=== PATIENT | female | born 1955 | race African-American/Black ===

== ENCOUNTER 2020-10-16 11:40 | Inpatient (IN) | payer MEDICARE, MEDICAID ==
[~2020-10-16] VITALS: Ht 165.1 cm; Wt 99.8 kg
[2020-10-16 16:10] VITALS: BP 150/72
--- NOTE | 2020-10-16 17:00 | NUR ---
NURSE NOTES: Patient uncooperative, refused to state time las taken meds. Addendum: 10/16/20 at 1759 by Yani Marina RN estefani
--- NOTE | 2020-10-16 17:26 | NUR ---
CHARGE NURSE NOTE: Received patient as a direct admit. from office. Alert, orientedx4, using her own walker. Adm.diagnosis: Anemia, GI Bleeding. No pain or signs of discomfort. Pt feels weak. was called for adm.orders, was covering him and gave adm. orders. He will visit patient and put more orders.
[2020-10-16] MEDS ORDERED: LEVOTHYROXINE125 MCG ORAL (17:46)
[2020-10-16] MEDS ORDERED: HYZAAR 100-251 EACH ORAL (17:58)
[2020-10-16] MEDS ORDERED: METOPROLOL SUCC25 MG ORAL (17:58)
[2020-10-16] MEDS ORDERED: COMPAZINE10 M2 PO (17:58)
[2020-10-16] MEDS ORDERED: MELOXICAM15 MG PO (17:58)
[2020-10-16] MEDS ORDERED: PANTOPRAZOLE SO40 MG ORAL (17:58)
[2020-10-16] MEDS ORDERED: HYDROCODON-ACE1 EA13 ORAL (17:58)
[2020-10-16] MEDS ORDERED: ATORVASTATIN CA40 MG ORAL (17:58)
[2020-10-16] MEDS ORDERED: CYCLOBENZAPRINE10 MG ORAL (17:58)
[2020-10-16] MEDS ORDERED: ELIQUIS5 MG ORAL (17:58)
[2020-10-16 19:00] LABS: BASOPHILS % (AUTO) 0.5 % (0.0-2.0); EOSINOPHILS % (AUTO) 2.3 % (0.0-3.0); HEMATOCRIT 28.7 % (37.0-47.0); HEMOGLOBIN 8.6 G/DL (12.0-16.0); LYMPHOCYTES % (AUTO) 36.9 % (20.0-45.0); MEAN CORPUSCULAR VOLUME 91 FL (80-99); MONOCYTES % (AUTO) 7.5 % (1.0-10.0); NEUTROPHILS % (AUTO) 52.7 % (45.0-75.0); PLATELET COUNT 163 K/UL (150-450); RED BLOOD COUNT 3.15 M/UL (4.20-5.40); RED CELL DISTRIBUTION WIDTH 16.1 % (11.6-14.8); WHITE BLOOD COUNT 5.4 K/UL (4.8-10.8)
[2020-10-16 19:20] LABS: ALANINE AMINOTRANSFERASE 17 U/L (12-78); ALBUMIN 3.6 G/DL (3.4-5.0); ALKALINE PHOSPHATASE 75 U/L (46-116); ANION GAP 11 mmol/L (5-15); ASPARTATE AMINO TRANSFERASE 16 U/L (15-37); BILIRUBIN,TOTAL < 0.1 MG/DL (0.2-1.0); BLOOD UREA NITROGEN 25 mg/dL (7-18); CALCIUM 9.3 MG/DL (8.5-10.1); CARBON DIOXIDE 24 MMOL/L (21-32); CHLORIDE 106 MMOL/L (98-107); CREATININE 2.1 MG/DL (0.55-1.30); POTASSIUM 4.1 MMOL/L (3.5-5.1); SODIUM 141 MMOL/L (136-145)
--- NOTE | 2020-10-16 19:20 | General Progress Note ---
Subjective Allergies: Coded Allergies: PENICILLINS (Verified Allergy, Mild, Rash, 10/16/20) Objective Last 24 Hour Vital Signs Date Time Temp Pulse Resp B/P (MAP) Pulse Ox O2 Delivery O2 Flow Rate FiO2 10/16/20 16:38 Room Air 10/16/20 16:10 98.4 54 16 150/72 (98) 98 Laboratory Tests 10/16/20 18:45: White Blood Count 5.4, Red Blood Count 3.15L, Hemoglobin 8.6L, Hematocrit 28.7L, Mean Corpuscular Volume 91, Mean Corpuscular Hemoglobin 27.2, Mean Corpuscular Hemoglobin Concent 29.9L, Red Cell Distribution Width 16.1H, Platelet Count 163, Mean Platelet Volume 9.6, Neutrophils (%) (Auto) 52.7, Lymphocytes (%) (Auto) 36.9, Monocytes (%) (Auto) 7.5, Eosinophils (%) (Auto) 2.3, Basophils (%) (Auto) 0.5, Sodium Level [Pending], Potassium Level [Pending], Chloride Level [Pending], Carbon Dioxide Level [Pending], Blood Urea Nitrogen [Pending], Creatinine [Pending], Estimat Glomerular Filtration Rate [Pending], Glucose Level [Pending], Calcium Level [Pending], Iron Level [Pending], Unsaturated Iron Binding [Pending], Total Bilirubin [Pending], Aspartate Amino Transf (AST/SGOT) [Pending], Alanine Aminotransferase (ALT/SGPT) [Pending], Alkaline Phosphatase [Pending], Total Protein [Pending], Albumin [Pending], Globulin [Pending], Carcinoembryonic Antigen [Pending] Height (Feet): 5 Height (Inches): 7.00 Weight (Pounds): 220 Assessment/Plan Assessment/Plan: GI CONSULT Telehealth visit Full note to follow Assessment - Melena - Anemia - abdominal pain - N/V - CAD - HTN Recommendations - po diet OK - will order COVID test per GI lab protocol - EGD once COVID results available - PPI - Follow CBC Thank you MD Prashanth Haddad Payman MD Oct 16, 2020 19:20
[2020-10-16 19:29] LABS: % IRON SATURATION 7 % (15-50); IRON 20 ug/dL (50-175); TOTAL IRON BINDING CAPACITY 301 ug/dL (250-450)
--- NOTE | 2020-10-16 19:38 | NUR ---
NURSE HAND-OFF: Important Events on Shift:[direct admit] Patient Status: [stable] Diet: [SHABBIR] Pending Orders: [] Pending Results/Labs:[] Pending MD notification:[] Latest Vital Signs: Temperature 98.4 , Pulse 54 , B/P 150 /72 , Respiratory Rate 16 , O2 SAT 98 , , O2 Flow Rate . Vital Sign Comment: [] Latest Huizar Fall Score: 45 Fall Risk: High Risk Safety Measures: Call light Within Reach, Bed Alarm Zone 1, Side Rails Side Rails x2, Bed position Low and Locked. Fall Precautions: Yellow Socks Patient Fall Education Report given to [Maria A RN].
--- NOTE | 2020-10-16 19:39 | NUR ---
NURSE NOTES: Received patient in no apparent distress. A&OX4. IV site patent and intact. Remind patient NPO and collect stool sample, patient fully understood. Patient's walker at bedside. Bed in lowest position. Call light within reach. Will continue to monitor.
--- NOTE | 2020-10-16 19:49 | NUR ---
NURSE NOTES: Dr. Alford requested to do rapid COVID test. Lab says that they don't do rapid test anymore. Notified Dr. Alford. Dr. Alford says that he will postpone EGD schedule until get Covid test result.
[2020-10-16 20:00] VITALS: BP 139/50
[2020-10-16] MEDS: Pantoprazole Inj IVP SCH (21:19)
[2020-10-16] MEDS: Potassium Chloride 10 MEQ in D5 1/2NS 1,000 ML IV SCH (21:20)
[2020-10-17] VITALS: BP 136/52
[2020-10-17 04:00] VITALS: BP 153/57
[2020-10-17] MEDS: Levothyroxine 125mcg tab ORAL SCH (06:15)
[2020-10-17 06:58] LABS: HEMATOCRIT 24.5 % (37.0-47.0); HEMOGLOBIN 7.5 G/DL (12.0-16.0); MEAN CORPUSCULAR VOLUME 89 FL (80-99); PLATELET COUNT 148 K/UL (150-450); RED BLOOD COUNT 2.76 M/UL (4.20-5.40); RED CELL DISTRIBUTION WIDTH 15.2 % (11.6-14.8); WHITE BLOOD COUNT 4.3 K/UL (4.8-10.8)
[2020-10-17 07:07] LABS: NEUTROPHILS % (AUTO) 45.3 % (45.0-75.0)
[2020-10-17 07:08] LABS: LYMPHOCYTES % (AUTO) 42.3 % (20.0-45.0); MONOCYTES % (AUTO) 10.1 % (1.0-10.0)
--- NOTE | 2020-10-17 07:41 | NUR ---
NURSE HAND-OFF: Important Events on Shift: NPO, Need collect stool Patient Status: Diet: NPO Pending Orders: Pending Results/Labs: Pending MD notification: Latest Vital Signs: Temperature 98.3 , Pulse 57 , B/P 153 /57 , Respiratory Rate 16 , O2 SAT 97 , , O2 Flow Rate . Vital Sign Comment: Latest Huizar Fall Score: 45 Fall Risk: High Risk Safety Measures: Call light Within Reach, Bed Alarm Zone 1, Side Rails Side Rails x2, Bed position Low and Locked. Fall Precautions: Yellow Socks Patient Fall Education Report given to Klarissa Adrian RN.
--- NOTE | 2020-10-17 07:42 | NUR ---
NURSE NOTES: Received report from SANDRO Waldrop. Rounding done. Pt a/o x 4, in bed. No SOB noted with room air. Denies any pain at this time. D51/2NS + KCl 10 meq is running @75ml/hr via Rt hand IV access. Pt is on NPO. Bed in lowest position, call light within reach. Will continue to monitor.
[2020-10-17 08:00] VITALS: BP 169/70
[2020-10-17] MEDS: Pantoprazole Inj IVP SCH ×2 (08:11→20:28)
[2020-10-17] MEDS: Losartan 50mg tab ORAL SCH (08:11)
[2020-10-17] MEDS: Metoprolol Succinate XL 25mg tab ORAL SCH (08:12)
--- NOTE | 2020-10-17 08:49 | NUR ---
CASE MANAGEMENT:REVIEW DIRECT ADMIT FROM HOME SI: ABDOMINAL PAIN. MELENA 98.4 54 16 150/72 98% ON RA H/H-8.6/28.7 BUN+25 CR+2.1 IS: IV VENOFER QHS IVF+KCL@75/HR IV PROTONIX Q12 SYNTHROID PO QD TOPROL XL PO QD COZAAR PO QD LIPITOR PO QHS : ADMITTED TO MED/SURG PLAN: NOVEL COVID SWAB EGD ONCE COVID RESULTS ARE AVAILABLE
--- NOTE | 2020-10-17 10:38 | General Progress Note ---
Subjective Allergies: Coded Allergies: PENICILLINS (Verified Allergy, Mild, Rash, 10/16/20) Subjective Feels OK no events overnight H&H lower today COVID results pending Objective Last 24 Hour Vital Signs Date Time Temp Pulse Resp B/P (MAP) Pulse Ox O2 Delivery O2 Flow Rate FiO2 10/17/20 09:00 Room Air 10/17/20 08:12 53 169/70 10/17/20 08:11 169/70 10/17/20 08:00 97.7 53 19 169/70 (103) 97 10/17/20 04:00 98.3 57 16 153/57 (89) 97 10/17/20 00:00 97.6 57 16 136/52 (80) 99 10/16/20 21:00 Room Air 10/16/20 20:00 97.5 59 16 139/50 (79) 99 10/16/20 16:38 Room Air 10/16/20 16:10 98.4 54 16 150/72 (98) 98 Intake and Output 10/16/20 10/17/20 19:00 07:00 Intake Total 500 ml 675 ml Balance 500 ml 675 ml Intake Oral 500 ml IV Total 675 ml # Voids 1 2 Laboratory Tests 10/16/20 18:45: White Blood Count 5.4, Red Blood Count 3.15L, Hemoglobin 8.6L, Hematocrit 28.7L, Mean Corpuscular Volume 91, Mean Corpuscular Hemoglobin 27.2, Mean Corpuscular Hemoglobin Concent 29.9L, Red Cell Distribution Width 16.1H, Platelet Count 163, Mean Platelet Volume 9.6, Neutrophils (%) (Auto) 52.7, Lymphocytes (%) (Auto) 36.9, Monocytes (%) (Auto) 7.5, Eosinophils (%) (Auto) 2.3, Basophils (%) (Auto) 0.5, Sodium Level 141, Potassium Level 4.1, Chloride Level 106, Carbon Dioxide Level 24, Anion Gap 11, Blood Urea Nitrogen 25H, Creatinine 2.1H, Estimat Glomerular Filtration Rate 28.5, Glucose Level 92, Calcium Level 9.3, Iron Level 20L, Total Iron Binding Capacity 301, Percent Iron Saturation 7L, Unsaturated Iron Binding 281, Total Bilirubin < 0.1L, Aspartate Amino Transf (AST/SGOT) 16, Alanine Aminotransferase (ALT/SGPT) 17, Alkaline Phosphatase 75, Total Protein 7.1, Albumin 3.6, Globulin 3.5, Albumin/Globulin Ratio 1.0, Carcinoembryonic Antigen [Pending] 10/17/20 05:45: White Blood Count 4.3L, Red Blood Count 2.76L, Hemoglobin 7.5L, Hematocrit 24.5L , Mean Corpuscular Volume 89, Mean Corpuscular Hemoglobin 27.3, Mean Corpuscular Hemoglobin Concent 30.8L, Red Cell Distribution Width 15.2H, Platelet Count 148L, Mean Platelet Volume 9.5, Neutrophils (%) (Auto) 45.3, Lymphocytes (%) (Auto) 42.3, Monocytes (%) (Auto) 10.1H, Eosinophils (%) (Auto) 1.0, Basophils (%) (Auto) 0.0, Prothrombin Time 11.4, Prothromb Time International Ratio 1.0 Height (Feet): 5 Height (Inches): 7.00 Weight (Pounds): 220 Objective NCAT Supple CTA RRR abd soft ND NT no edema Neuro Nonfocal Assessment/Plan Assessment/Plan: Assessment - Melena - Anemia - abdominal pain - improved - N/V - resolved - CAD - HTN - Azotemia Recommendations - po diet - f/u COVID test - EGD pending - PPI - Follow CBC, BMP Darrius Alford MD Oct 17, 2020 10:37
[2020-10-17] MEDS: Potassium Chloride 10 MEQ in D5 1/2NS 1,000 ML IV SCH ×2 (10:56→22:32)
[2020-10-17 13:15] VITALS: BP 163/59
[2020-10-17] MEDS: HydrALAZINE 25mg tab ORAL PRN (13:16)
[2020-10-17] MEDS ORDERED: ZOFRAN ODT8 MG ORAL (15:38)
[2020-10-17] MEDS ORDERED: MEDROL DOSEPAK4 MG ORAL (15:38)
[2020-10-17] MEDS: HYDROcodone/Acetamin 5/325 tab ORAL PRN ×2 (15:43→21:50)
[2020-10-17 16:00] VITALS: BP 155/60
--- NOTE | 2020-10-17 16:10 | NUR ---
NURSE NOTES: Blood transfusion was started. Pt is in stable condition.
--- NOTE | 2020-10-17 19:00 | NUR ---
NURSE NOTES: Blood transfusion was done. Pt is in stable condition.
--- NOTE | 2020-10-17 19:20 | NUR ---
NURSE HAND-OFF: Important Events on Shift: PRBC 1 unit was given Patient Status: stable Diet: cardiac diet Pending Orders: EGD Pending Results/Labs:n/a Pending MD notification:n/a Latest Vital Signs: Temperature 97.9 , Pulse 60 , B/P 155 /60 , Respiratory Rate 18 , O2 SAT 100 , , O2 Flow Rate . Vital Sign Comment: stable Latest Huizar Fall Score: 45 Fall Risk: High Risk Safety Measures: Call light Within Reach, Bed Alarm Zone 1, Side Rails Side Rails x2, Bed position Low and Locked. Fall Precautions: Yellow Socks Patient Fall Education Report given to SANDRO Kirk.
--- NOTE | 2020-10-17 19:30 | NUR ---
NURSE NOTES: Patient in bed, awake and ANOx4. On room air with no signs of distress or SOB. IV intact and patent. Bed locked and in lowest position. Call light within reach. Will continue to monitor.
[2020-10-17 20:00] VITALS: BP 151/60
[2020-10-17] MEDS: Atorvastatin 20mg tab ORAL SCH (20:29)
[2020-10-17] MEDS: Iron Sucrose 100 MG in NS 55 ML IVPB SCH (21:42)
--- NOTE | 2020-10-17 23:49 | Cardiology Progress Note ---
Subjective DATE OF SERVICE: Oct 17, 2020 No signs of bleeding, but hemoglobin dropped to 7.5. Stool OB pending (no BM) Patient with episodic abdominal pain Objective Last 24 Hour Vital Signs Date Time Temp Pulse Resp B/P (MAP) Pulse Ox O2 Delivery O2 Flow Rate FiO2 10/17/20 21:00 Room Air 10/17/20 20:00 98.4 66 24 151/60 (90) 99 10/17/20 16:00 97.9 60 18 155/60 (91) 100 10/17/20 13:16 163/59 10/17/20 13:15 97.2 61 19 163/59 (93) 99 10/17/20 09:00 Room Air 10/17/20 08:12 53 169/70 10/17/20 08:11 169/70 10/17/20 08:00 97.7 53 19 169/70 (103) 97 10/17/20 04:00 98.3 57 16 153/57 (89) 97 10/17/20 00:00 97.6 57 16 136/52 (80) 99 HEENT: normal ENT inspection LUNGS: lungs clear bilaterally CARDIAC: normal rate, regular rhythm, normal S1 and S2, systolic murmur - 1/6 syst murmur at apex ABDOMEN: normal bowel sounds, non tender, soft, no organomegaly EXTREMITIES: normal range of motion, non-tender Laboratory Tests Test 10/17/20 05:45 White Blood Count 4.3 K/UL (4.8-10.8) L Red Blood Count 2.76 M/UL (4.20-5.40) L Hemoglobin 7.5 G/DL (12.0-16.0) L Hematocrit 24.5 % (37.0-47.0) L Mean Corpuscular Volume 89 FL (80-99) Mean Corpuscular Hemoglobin 27.3 PG (27.0-31.0) Mean Corpuscular Hemoglobin Concent 30.8 G/DL (32.0-36.0) L Red Cell Distribution Width 15.2 % (11.6-14.8) H Platelet Count 148 K/UL (150-450) L Mean Platelet Volume 9.5 FL (6.5-10.1) Neutrophils (%) (Auto) 45.3 % (45.0-75.0) Lymphocytes (%) (Auto) 42.3 % (20.0-45.0) Monocytes (%) (Auto) 10.1 % (1.0-10.0) H Eosinophils (%) (Auto) 1.0 % (0.0-3.0) Basophils (%) (Auto) 0.0 % (0.0-2.0) Prothrombin Time 11.4 SEC (9.30-11.50) Prothromb Time International Ratio 1.0 (0.9-1.1) Assessment/Plan Assessment/Plan GI Bleed Anemia Iron def Ischemic heart disease Hx CABG Hypertension/HHD CKD PRBC tx Titrate antiHTN regimen Off anticoagulation and antiplt rx For diagnostic EGD tomorrow Gordo Lal MD Oct 17, 2020 23:49
[2020-10-18] VITALS (12 sets, daily range): BP systolic 150–170; BP diastolic 55–91
[2020-10-18] MEDS: Levothyroxine 125mcg tab ORAL SCH (05:45)
[2020-10-18] MEDS: HydrALAZINE 25mg tab ORAL PRN ×2 (05:45→14:51)
[2020-10-18 06:14] LABS: BASOPHILS % (AUTO) 0.9 % (0.0-2.0); EOSINOPHILS % (AUTO) 2.1 % (0.0-3.0); HEMATOCRIT 25.3 % (37.0-47.0); HEMOGLOBIN 8.2 G/DL (12.0-16.0); LYMPHOCYTES % (AUTO) 38.6 % (20.0-45.0); MEAN CORPUSCULAR VOLUME 89 FL (80-99); MONOCYTES % (AUTO) 9.1 % (1.0-10.0); NEUTROPHILS % (AUTO) 49.4 % (45.0-75.0); PLATELET COUNT 144 K/UL (150-450); RED BLOOD COUNT 2.83 M/UL (4.20-5.40); RED CELL DISTRIBUTION WIDTH 15.7 % (11.6-14.8); WHITE BLOOD COUNT 4.7 K/UL (4.8-10.8)
--- NOTE | 2020-10-18 06:26 | NUR ---
NURSE HAND-OFF: Important Events on Shift: PCR swab neg for COVID-19 10/18 Patient Status: Stable Diet: NPO Pending Orders: OB stool Pending Results/Labs: BMP, CBC Pending MD notification:N/A Latest Vital Signs: Temperature 97.2 , Pulse 58 , B/P 160 /63 , Respiratory Rate 20 , O2 SAT 93 , , O2 Flow Rate . Vital Sign Comment: [] Latest Huizar Fall Score: 45 Fall Risk: High Risk Safety Measures: Call light Within Reach, Bed Alarm Zone 1, Side Rails Side Rails x2, Bed position Low and Locked. Fall Precautions: Yellow Socks Patient Fall Education
[2020-10-18 06:29] LABS: CREATININE 2.1 MG/DL (0.55-1.30); POTASSIUM 4.2 MMOL/L (3.5-5.1)
--- NOTE | 2020-10-18 07:23 | NUR ---
NURSE NOTES: Report received from Yelena JO, rounds made. Patient AOx4, calm. Respirations even/unlabored on RA. NPO for EGD today. Will medicate for pain, PRN. Stool OB still needed. IVF D5 1/2 NS +10 KCL at 75 ml/hr to right hand, site asymptomatic. Call light in reach, bed in lowest position, will continue to monitor.
--- NOTE | 2020-10-18 08:30 | NUR ---
NURSE NOTES: GI lab notified that patient ate 50 % of breakfast (NPO sign is present on patient room door), will follow up on time for EGD.
--- NOTE | 2020-10-18 09:09 | NUR ---
RD ASSESSMENT & RECOMMENDATIONS SEE CARE ACTIVITY FOR COMPLETE ASSESSMENT DAILY ESTIMATED NEEDS: Needs based on Cardiac, obese 69.8kg abw 20-25 kcals/kg 2019-3484 total kcals 1-1.2 g protein/kg 70-84 g total protein 25-30 mL/kg 2192-5692 total fluid mLs NUTRITION DIAGNOSIS: Altered GI function related to melena and anemia as evidenced by low Hgb (now 8.2 s/p PRBC), adm w/ abdominal pain, EGD pending. CURRENT DIET: Cardiac PO DIET RECOMMENDATIONS: Rec CARDIAC/ LOW FIBER diet ADDITIONAL RECOMMENDATIONS: 1) Obtain a standing weight or calibrated bed scale wt 2) Monitor renal status, lytes
[2020-10-18] MEDS: Losartan 50mg tab ORAL SCH (09:23)
[2020-10-18] MEDS: Pantoprazole Inj IVP SCH ×2 (09:24→21:37)
[2020-10-18] MEDS: Metoprolol Succinate XL 25mg tab ORAL SCH (09:24)
[2020-10-18] MEDS: HYDROcodone/Acetamin 5/325 tab ORAL PRN (09:25)
--- NOTE | 2020-10-18 12:35 | Pre-Procedure Note/Attestation ---
Pre-Procedure Note/Attestation Complete Prior to Procedure Planned Procedure: not applicable Procedure Narrative: gib Indications for Procedure Pre-Operative Diagnosis: egd Attestation I attest that I discussed the nature of the procedure; its benefits; risks and complications; and alternatives (and the risks and benefits of such alternatives), prior to the procedure, with the patient (or the patient's legal community health representative). I attest that, if there was a reasonable possibility of needing a blood transfusion, the patient (or the patient's legal community health representative) was given the [facility] standardized written summary, pursuant to the Waqar Lai Blood Safety Act ([place] Health and Safety Code # 1645, as amended). I attest that I re-evaluated the patient just prior to the surgery and that there has been no change in the patient's H&P, except as documented below: Lake Odom MD Oct 18, 2020 12:35
[2020-10-18] MEDS ORDERED: Ketorolac 30mg Inj IV PRN ×2 (12:45)
[2020-10-18] MEDS ORDERED: Labetalol 5mg/ml 20ml vial IV PRN (12:45)
[2020-10-18] MEDS ORDERED: DiphenhydrAMINE 50mg/ml Inj IVP PRN (12:45)
[2020-10-18] MEDS ORDERED: Atropine Sulfate 0.4mg/ml inj IVP PRN (12:45)
[2020-10-18] MEDS ORDERED: Midazolam 2mg/2ml Inj IVP PRN (12:45)
[2020-10-18] MEDS ORDERED: LORazepam Inj 2mg/ml 1ml IV PRN (12:45)
[2020-10-18] MEDS ORDERED: HYDROcodone/Acetamin 5/325 tab ORAL PRN (12:45)
[2020-10-18] MEDS ORDERED: Hydromorphone 0.5mg/0.5ml inj IVP PRN (12:45)
[2020-10-18] MEDS ORDERED: HYDROcodone/Acetamin 7.5/325 tab ORAL PRN (12:45)
[2020-10-18] MEDS ORDERED: fentaNYL 100 mcg/2 mL IV PRN (12:45)
[2020-10-18] MEDS ORDERED: Metoclopramide 10mg/2ml Inj IVP PRN (12:45)
[2020-10-18] MEDS ORDERED: oxyCODONE HCL/Acetaminophen 5/325mg ORAL PRN (12:45)
[2020-10-18] MEDS ORDERED: Meperidine 25mg/1ml Inj (FOR RIGORS ONLY) IV PRN (12:45)
[2020-10-18] MEDS ORDERED: LR 1000ml 1,000 ML IVLG SCH (12:45)
--- NOTE | 2020-10-18 12:47 | Anethesia Preoperative Eval ---
Anesthesia Pre-op PMH/ROS General Date of Evaluation: Oct 18, 2020 Time of Evaluation: 13:47 Anesthesiologist: Rose ASA Score: ASA 3 Mallampati Score Class I : Soft palate, uvula, fauces, pillars visible Class II: Soft palate, uvula, fauces visible Class III: Soft palate, base of uvula visible Class IV: Only hard plate visible Mallampati Classification: Class III Surgeon: Ilene Diagnosis: Abd Pain Surgical Procedure: EGD Anesthesia History: none Family History: no anesthesia problems Allergies: Coded Allergies: PENICILLINS (Verified Allergy, Mild, Rash, 10/16/20) Medications: see eMAR Patient NPO?: Yes Past Medical History Cardiovascular: Reports: HTN, CAD Endocrine: Reports: hypothyroidism Hematology/Immune: Reports: anemia Other: obesity - BMI 38 PSxH Narrative: CABG X 3 2014 Anesthesia Pre-op Phys. Exam Physician Exam Last Vital Signs Date Time Temp Pulse Resp B/P (MAP) Pulse Ox O2 Delivery O2 Flow Rate FiO2 10/18/20 09:24 61 154/77 10/18/20 04:00 97.2 20 93 10/17/20 21:00 Room Air Constitutional: NAD Neurologic: CN 2-12 intact Cardiovascular: RRR Respiratory: CTA Gastrointestinal: S/NT/ND Airway Exam Mallampati Score: Class III MO: limited ROM: limited Anesthesia Pre-op A/P Labs Hematology Test 10/18/20 06:00 White Blood Count 4.7 K/UL (4.8-10.8) L Red Blood Count 2.83 M/UL (4.20-5.40) L Hemoglobin 8.2 G/DL (12.0-16.0) L Hematocrit 25.3 % (37.0-47.0) L Mean Corpuscular Volume 89 FL (80-99) Mean Corpuscular Hemoglobin 28.9 PG (27.0-31.0) Mean Corpuscular Hemoglobin Concent 32.3 G/DL (32.0-36.0) Red Cell Distribution Width 15.7 % (11.6-14.8) H Platelet Count 144 K/UL (150-450) L Mean Platelet Volume 8.4 FL (6.5-10.1) Neutrophils (%) (Auto) 49.4 % (45.0-75.0) Lymphocytes (%) (Auto) 38.6 % (20.0-45.0) Monocytes (%) (Auto) 9.1 % (1.0-10.0) Eosinophils (%) (Auto) 2.1 % (0.0-3.0) Basophils (%) (Auto) 0.9 % (0.0-2.0) Chemistry Test 10/18/20 06:00 Sodium Level 142 MMOL/L (136-145) Potassium Level 4.2 MMOL/L (3.5-5.1) Chloride Level 111 MMOL/L (98-107) H Carbon Dioxide Level 24 MMOL/L (21-32) Anion Gap 7 mmol/L (5-15) Blood Urea Nitrogen 22 mg/dL (7-18) H Creatinine 2.1 MG/DL (0.55-1.30) H Estimat Glomerular Filtration Rate 28.5 mL/min (>60) Glucose Level 101 MG/DL (74-106) Calcium Level 9.0 MG/DL (8.5-10.1) Risk Assessment & Plan Assessment: ASA 3 Plan: TIVA Status Change Before Surgery: Lars Bowman MD Oct 18, 2020 12:47
--- NOTE | 2020-10-18 12:47 | Immediate Post-Op Evaluation ---
Immediate Post-Op Evalulation Immediate Post-Op Evalulation Procedure: EGD Date of Evaluation: Oct 18, 2020 Time of Evaluation: 14:20 IV Fluids: 200 NS Blood Products: 0 Estimated Blood Loss: 1 Urinary Output: 0 Blood Pressure Systolic: 158 Blood Pressure Diastolic: 83 Pulse Rate: 69 Respiratory Rate: 16 O2 Sat by Pulse Oximetry: 100 Temperature (Fahrenheit): 98.1 Pain Score (1-10): 2 Nausea: No Vomiting: No Complications 0 Patient Status: awake, reacts, patent, none Hydration Status: adequate Lars Rose MD Oct 18, 2020 12:47
--- NOTE | 2020-10-18 12:48 | 48 Hour Post Anesthesia Eval ---
Post Anesthesia Evaluation Procedure: EGD Date of Evaluation: Oct 18, 2020 Time of Evaluation: 16:34 Blood Pressure Systolic: 154 0: 74 Pulse Rate: 67 Respiratory Rate: 18 Temperature (Fahrenheit): 98.2 O2 Sat by Pulse Oximetry: 100 Airway: patent Nausea: No Vomiting: No Pain Intensity: 1 Hydration Status: adequate Cardiopulmonary Status: Stable Mental Status/LOC: patient returned to baseline Follow-up Care/Observations: 0 Post-Anesthesia Complications: 0 Follow-up care needed: N/A Lars Rose MD Oct 18, 2020 12:48
[2020-10-18] MEDS: Potassium Chloride 10 MEQ in D5 1/2NS 1,000 ML IV SCH ×2 (13:16→21:37)
[2020-10-18] MEDS ORDERED: NS 500ML IVPB ONE (13:40)
--- NOTE | 2020-10-18 13:40 | Endoscopy Procedure Note ---
Endoscopy Procedure Note General Indication for Procedure: gib Procedures Performed: EGD Operative Findings/Diagnosis: gastritis Specimen: yes Pt Tolerated Procedure Well: Yes Estimated Blood Loss: none Anesthesia Anesthesiologist: carrie Anesthesia: MAC Inserted Devices Implant(s) used?: No GI Core Measures 50 yrs or older w/o bx or poly: Not Applicable 10yrs. F/U recommended: Not Applicable Lake Odom MD Oct 18, 2020 13:40
[2020-10-18] MEDS ORDERED: Lidocaine 1% MPF 10mg/ml 5ml ONE (14:00)
[2020-10-18] MEDS ORDERED: LR 1000ml ONE (14:00)
--- NOTE | 2020-10-18 14:12 | NUR ---
CASE MANAGEMENT:REVIEW 10/18/20 SI: ABDOMINAL PAIN. MELENA S/P EGD(+) GASTRITIS 98.6 67 18 160/63 97% ON RA WBC-4.7 H/H-8.2/25.3 PLT-144 BUN+22 CR+2.1 IS: IVF+KCL@75/HR NORVASC PO QD IV VENOFER QHS LIPITOR PO QHS COZAAR PO QD TOPROL XL PO QD SYNTHROID PO QD : MED/SURG STATUS DCP: FROM HOME
--- NOTE | 2020-10-18 14:30 | NUR ---
NURSE NOTES: Patient sent to EGD via gurney at 1330 on RA in stable condition, returned at 1430. Findings: no gi bleed, gastritis.
--- NOTE | 2020-10-18 17:23 | General Progress Note ---
Subjective ROS Limited/Unobtainable: No Constitutional: Reports: no symptoms HEENT: Reports: no symptoms Cardiovascular: Reports: no symptoms Respiratory: Reports: no symptoms Gastrointestinal/Abdominal: Reports: no symptoms Genitourinary: Reports: no symptoms Neurologic/Psychiatric: Reports: no symptoms Endocrine: Reports: no symptoms Hematologic/Lymphatic: Reports: anemia Allergies: Coded Allergies: PENICILLINS (Verified Allergy, Mild, Rash, 10/16/20) All Systems: reviewed and negative except above Subjective no complaints. no bleeding. labs reviewed.. npo for endoscopy. on PPI. off ac/antiplt rx Objective Last 24 Hour Vital Signs Date Time Temp Pulse Resp B/P (MAP) Pulse Ox O2 Delivery O2 Flow Rate FiO2 10/18/20 14:51 170/78 10/18/20 14:50 98.5 84 16 170/78 (108) 96 10/18/20 14:25 97.9 90 19 163/91 100 Room Air 10/18/20 14:15 79 24 162/79 100 Simple Mask 6 10/18/20 14:05 65 16 161/81 100 Simple Mask 6 10/18/20 14:04 67 18 100 10/18/20 14:03 69 16 100 10/18/20 14:00 98.0 67 21 166/79 100 Simple Mask 6 10/18/20 12:00 98.6 57 21 160/63 (95) 97 10/18/20 09:24 61 154/77 10/18/20 09:24 61 154/77 10/18/20 09:23 154/77 10/18/20 09:00 Room Air 10/18/20 08:00 98.1 61 18 154/77 (102) 97 10/18/20 05:45 160/63 10/18/20 04:00 97.2 58 20 160/63 (95) 93 10/18/20 00:51 68 155/61 10/18/20 00:00 98.1 68 18 155/61 (92) 98 10/17/20 21:00 Room Air 10/17/20 20:00 98.4 66 24 151/60 (90) 99 Intake and Output 10/17/20 10/18/20 19:00 07:00 Intake Total 1590 ml Balance 1590 ml Intake Oral 840 ml IV Total 750 ml # Voids 3 Laboratory Tests 10/18/20 06:00: White Blood Count 4.7L, Red Blood Count 2.83L, Hemoglobin 8.2L, Hematocrit 25.3L , Mean Corpuscular Volume 89, Mean Corpuscular Hemoglobin 28.9, Mean Corpuscular Hemoglobin Concent 32.3, Red Cell Distribution Width 15.7H, Platelet Count 144L, Mean Platelet Volume 8.4, Neutrophils (%) (Auto) 49.4, Lymphocytes (%) (Auto) 38.6, Monocytes (%) (Auto) 9.1, Eosinophils (%) (Auto) 2.1, Basophils (%) (Auto) 0.9, Sodium Level 142, Potassium Level 4.2, Chloride Level 111H, Carbon Dioxide Level 24, Anion Gap 7, Blood Urea Nitrogen 22H, Creatinine 2.1H, Estimat Glomerular Filtration Rate 28.5, Glucose Level 101, Calcium Level 9.0 Height (Feet): 5 Height (Inches): 5.00 Weight (Pounds): 220 General Appearance: WD/WN, alert EENT: normal ENT inspection Neck: normal alignment, supple Cardiovascular: normal rate, regular rhythm Respiratory/Chest: chest wall non-tender, lungs clear, normal breath sounds, no respiratory distress Abdomen: normal bowel sounds, non tender, soft, no organomegaly, no mass Edema: no edema noted Arm (L), no edema noted Arm (R), no edema noted Leg (L), no edema noted Leg (R) 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
--- NOTE | 2020-10-18 19:13 | NUR ---
NURSE HAND-OFF: Important Events on Shift:EGD done today ([id number], no gi bleed/gastritis findings, elevated BP, medicated with Hydralazine x1, [place] x1 Patient Status: stable Diet: cardiac Pending Orders: none Pending Results/Labs: none Pending MD notification: none Latest Vital Signs: Temperature 98.8 , Pulse 69 , B/P 151 /55 , Respiratory Rate 18 , O2 SAT 96 , Room Air, O2 Flow Rate 6 . Vital Sign Comment: MONITOR BP Latest Huizar Fall Score: 60 Fall Risk: High Risk Safety Measures: Call light Within Reach, Bed Alarm Zone 1, Side Rails Side Rails x2, Bed position Low and Locked. Fall Precautions: Yellow Socks Door Sign Patient Fall Education Report given to Bee JO. Addendum: 10/18/20 at 2030 by Nadine Shine RN STOOL OB STILL NEEDED.
--- NOTE | 2020-10-18 20:00 | NUR ---
NURSE NOTES: RECEIVED PATIENT LYING IN BED, AWAKE, ALERT/ORIENTED X3, VERBALLY RESPONSIVE, DENIES PAIN. NO SIGNS AND SYMPTOMS OF ACUTE CARDIO RESPIRATORY DISTRESS/SHORTNESS OF BREATH, DENIES CHEST PAIN, NO PERIPHERAL EDEMA NOTED. IV INTACT TO RIGHT HAND GAUGE 22, TOLERATING IV FLUIDS, NO REDNESS/SWELLING NOTED TO SITE. ABDOMEN SOFT/NON DISTENDED/NON TENDER/AUDIBLE BOWEL SOUNDS, NO REPORTS OF RECTAL BLEEDING, REMINDED PATIENT THAT STOOL SPECIMEN WAS NEEDED, VERBALIZED UNDERSTANDING, PATIENT STATED THAT SHE HAD BM AT APPROXIMATELY 6PM AND FORGOT TO SAVE IT. ASSISTED WITH COMFORT CARE. SIDE RAILS UP X3 FOR SAFETY, BED IN LOWEST POSITION, ENCOURAGED PATIENT TO UTILIZE CALL LIGHT FOR ASSISTANCE, VERBALIZED UNDERSTANDING, CONTINUE WITH CURRENT PLAN OF CARE. NAD.
[2020-10-18] MEDS: Atorvastatin 20mg tab ORAL SCH (20:30)
[2020-10-18] MEDS: Iron Sucrose 100 MG in NS 55 ML IVPB SCH (21:37)
--- NOTE | 2020-10-18 21:54 | General Progress Note ---
Subjective Allergies: Coded Allergies: PENICILLINS (Verified Allergy, Mild, Rash, 10/16/20) Subjective Feels OK had EGD today --> gastritis no abdominal complaints Objective Last 24 Hour Vital Signs Date Time Temp Pulse Resp B/P (MAP) Pulse Ox O2 Delivery O2 Flow Rate FiO2 10/18/20 18:55 98.8 18 151/55 (87) 96 10/18/20 16:00 98.3 69 20 157/74 (101) 95 10/18/20 14:51 170/78 10/18/20 14:50 98.5 84 16 170/78 (108) 96 10/18/20 14:25 97.9 90 19 163/91 100 Room Air 10/18/20 14:15 79 24 162/79 100 Simple Mask 6 10/18/20 14:05 65 16 161/81 100 Simple Mask 6 10/18/20 14:04 67 18 100 10/18/20 14:03 69 16 100 10/18/20 14:00 98.0 67 21 166/79 100 Simple Mask 6 10/18/20 12:00 98.6 57 21 160/63 (95) 97 10/18/20 09:24 61 154/77 10/18/20 09:24 61 154/77 10/18/20 09:23 154/77 10/18/20 09:00 Room Air 10/18/20 08:00 98.1 61 18 154/77 (102) 97 10/18/20 05:45 160/63 10/18/20 04:00 97.2 58 20 160/63 (95) 93 10/18/20 00:51 68 155/61 10/18/20 00:00 98.1 68 18 155/61 (92) 98 Intake and Output 10/17/20 10/18/20 19:00 07:00 Intake Total 1590 ml 75 ml Balance 1590 ml 75 ml Intake Oral 840 ml IV Total 750 ml 75 ml # Voids 3 Laboratory Tests 10/18/20 06:00: White Blood Count 4.7L, Red Blood Count 2.83L, Hemoglobin 8.2L, Hematocrit 25.3L , Mean Corpuscular Volume 89, Mean Corpuscular Hemoglobin 28.9, Mean Corpuscular Hemoglobin Concent 32.3, Red Cell Distribution Width 15.7H, Platelet Count 144L, Mean Platelet Volume 8.4, Neutrophils (%) (Auto) 49.4, Lymphocytes (%) (Auto) 38.6, Monocytes (%) (Auto) 9.1, Eosinophils (%) (Auto) 2.1, Basophils (%) (Auto) 0.9, Sodium Level 142, Potassium Level 4.2, Chloride Level 111H, Carbon Dioxide Level 24, Anion Gap 7, Blood Urea Nitrogen 22H, Creatinine 2.1H, Estimat Glomerular Filtration Rate 28.5, Glucose Level 101, Calcium Level 9.0 Height (Feet): 5 Height (Inches): 5.00 Weight (Pounds): 220 Objective NCAT Supple CTA RRR abd soft ND NT no edema Neuro Nonfocal Assessment/Plan Status: stable Assessment/Plan: Assessment - Melena - due to gastritis - Anemia - abdominal pain - improved - N/V - resolved - CAD - HTN - Azotemia Recommendations - po diet - PPI - Follow CBC, BMP - d/c planning - outpatient colonoscopy Darrius Alford MD Oct 18, 2020 21:54
[2020-10-19] VITALS (7 sets, daily range): BP systolic 143–163; BP diastolic 61–79
--- NOTE | 2020-10-19 02:31 | Cardiology Progress Note ---
Subjective DATE OF SERVICE: Oct 18, 2020 No signs of bleeding, but hemoglobin dropped to 7.5 yesterday, and she was transfused one unit of PRBC's. Patient with episodic abdominal pain EGD completed today: findings notable only for gastritis; no active bleeding. Objective Last 24 Hour Vital Signs Date Time Temp Pulse Resp B/P (MAP) Pulse Ox O2 Delivery O2 Flow Rate FiO2 10/19/20 00:00 98.0 66 20 157/64 (95) 96 10/18/20 21:00 Room Air 10/18/20 20:00 98.1 68 18 150/66 (94) 97 10/18/20 18:55 98.8 18 151/55 (87) 96 10/18/20 16:00 98.3 69 20 157/74 (101) 95 10/18/20 14:51 170/78 10/18/20 14:50 98.5 84 16 170/78 (108) 96 10/18/20 14:25 97.9 90 19 163/91 100 Room Air 10/18/20 14:15 79 24 162/79 100 Simple Mask 6 10/18/20 14:05 65 16 161/81 100 Simple Mask 6 10/18/20 14:04 67 18 100 10/18/20 14:03 69 16 100 10/18/20 14:00 98.0 67 21 166/79 100 Simple Mask 6 10/18/20 12:00 98.6 57 21 160/63 (95) 97 10/18/20 09:24 61 154/77 10/18/20 09:24 61 154/77 10/18/20 09:23 154/77 10/18/20 09:00 Room Air 10/18/20 08:00 98.1 61 18 154/77 (102) 97 10/18/20 05:45 160/63 10/18/20 04:00 97.2 58 20 160/63 (95) 93 HEENT: normal ENT inspection LUNGS: lungs clear bilaterally CARDIAC: normal rate, regular rhythm, normal S1 and S2, systolic murmur - 1/6 syst murmur at apex ABDOMEN: normal bowel sounds, non tender, soft, no organomegaly EXTREMITIES: normal range of motion, non-tender Laboratory Tests Test 10/18/20 06:00 White Blood Count 4.7 K/UL (4.8-10.8) L Red Blood Count 2.83 M/UL (4.20-5.40) L Hemoglobin 8.2 G/DL (12.0-16.0) L Hematocrit 25.3 % (37.0-47.0) L Mean Corpuscular Volume 89 FL (80-99) Mean Corpuscular Hemoglobin 28.9 PG (27.0-31.0) Mean Corpuscular Hemoglobin Concent 32.3 G/DL (32.0-36.0) Red Cell Distribution Width 15.7 % (11.6-14.8) H Platelet Count 144 K/UL (150-450) L Mean Platelet Volume 8.4 FL (6.5-10.1) Neutrophils (%) (Auto) 49.4 % (45.0-75.0) Lymphocytes (%) (Auto) 38.6 % (20.0-45.0) Monocytes (%) (Auto) 9.1 % (1.0-10.0) Eosinophils (%) (Auto) 2.1 % (0.0-3.0) Basophils (%) (Auto) 0.9 % (0.0-2.0) Sodium Level 142 MMOL/L (136-145) Potassium Level 4.2 MMOL/L (3.5-5.1) Chloride Level 111 MMOL/L (98-107) H Carbon Dioxide Level 24 MMOL/L (21-32) Anion Gap 7 mmol/L (5-15) Blood Urea Nitrogen 22 mg/dL (7-18) H Creatinine 2.1 MG/DL (0.55-1.30) H Estimat Glomerular Filtration Rate 28.5 mL/min (>60) Glucose Level 101 MG/DL (74-106) Calcium Level 9.0 MG/DL (8.5-10.1) Microbiology Date/Time Source Procedure Growth Status 10/16/20 18:50 Nasopharynx Coronavirus COVID-19 PCR ([facility]) - Final Complete Assessment/Plan Assessment/Plan GI Bleed due to gastritis and anti-coagulation rx Anemia - s/p 1 unit of PRBC Iron def Ischemic heart disease Hx CABG Hypertension/HHD CKD iron repl Titrate antiHTN regimen Avoid anti-plt rx GI clearance to resume anticoagulation. Gordo Lal MD Oct 19, 2020 02:31
[2020-10-19] MEDS: Levothyroxine 125mcg tab ORAL SCH (05:49)
[2020-10-19] MEDS: HYDROcodone/Acetamin 5/325 tab ORAL PRN ×2 (06:01→16:57)
--- NOTE | 2020-10-19 07:35 | NUR ---
NURSE NOTES: Report received from Bee JO, rounds made. Patient AOx4, calm. Respirations even/unlabored on RA. Appetite good on Cardiac diet. Stool OB still needed. IVF D5 1/2 NS +10 KCL at 75 ml/hr to right hand, site asymptomatic. Call light in reach, bed in lowest position, will continue to monitor.
--- NOTE | 2020-10-19 07:47 | NUR ---
NURSE HAND-OFF: Important Events on Shift:[UNEVENTFUL NIGHT, RESTED WELL, NAD.] Patient Status: [STABLE] Diet: [CARDIAC] Pending Orders: [N/A] Pending Results/Labs:[] Pending MD notification:[] Latest Vital Signs: Temperature 98.2 , Pulse 63 , B/P 153 /68 , Respiratory Rate 18 , O2 SAT 97 , Room Air, O2 Flow Rate 6 . Vital Sign Comment: [STABLE, AFEBRILE] Latest Huizar Fall Score: 60 Fall Risk: High Risk Safety Measures: Call light Within Reach, Bed Alarm Zone 1, Side Rails Side Rails x2, Bed position Low and Locked. Fall Precautions: Yellow Socks Door Sign Patient Fall Education Report given to [SANDRO ANTHONY].
--- NOTE | 2020-10-19 09:53 | General Progress Note ---
Subjective ROS Limited/Unobtainable: No Constitutional: Reports: weakness HEENT: Reports: no symptoms Cardiovascular: Reports: no symptoms Respiratory: Reports: no symptoms Gastrointestinal/Abdominal: Reports: blood in stool Genitourinary: Reports: no symptoms Neurologic/Psychiatric: Reports: no symptoms Endocrine: Reports: no symptoms Hematologic/Lymphatic: Reports: anemia Allergies: Coded Allergies: PENICILLINS (Verified Allergy, Mild, Rash, 10/16/20) All Systems: reviewed and negative except above Subjective no complaints. no bleeding. labs reviewed.. egd with gastritis. no ulcer/b leeding. on PPI. off ac/antiplt rx Objective Last 24 Hour Vital Signs Date Time Temp Pulse Resp B/P (MAP) Pulse Ox O2 Delivery O2 Flow Rate FiO2 10/19/20 06:31 98.2 10/19/20 04:00 98.2 63 18 153/68 (96) 97 10/19/20 00:00 98.0 66 20 157/64 (95) 96 10/18/20 21:00 Room Air 10/18/20 20:00 98.1 68 18 150/66 (94) 97 10/18/20 18:55 98.8 18 151/55 (87) 96 10/18/20 16:00 98.3 69 20 157/74 (101) 95 10/18/20 14:51 170/78 10/18/20 14:50 98.5 84 16 170/78 (108) 96 10/18/20 14:25 97.9 90 19 163/91 100 Room Air 10/18/20 14:15 79 24 162/79 100 Simple Mask 6 10/18/20 14:05 65 16 161/81 100 Simple Mask 6 10/18/20 14:04 67 18 100 10/18/20 14:03 69 16 100 10/18/20 14:00 98.0 67 21 166/79 100 Simple Mask 6 10/18/20 12:00 98.6 57 21 160/63 (95) 97 Intake and Output 10/18/20 10/19/20 19:00 07:00 Intake Total 950 ml 2651 ml Balance 950 ml 2651 ml Intake Oral 1720 ml IV Total 950 ml 931 ml # Voids 5 Height (Feet): 5 Height (Inches): 5.00 Weight (Pounds): 220 General Appearance: WD/WN, alert EENT: normal ENT inspection Neck: supple Cardiovascular: normal rate, regular rhythm Respiratory/Chest: chest wall non-tender, lungs clear, normal breath sounds Abdomen: normal bowel sounds, non tender, soft, no organomegaly Edema: no edema noted Arm (L), no edema noted Arm (R), no edema noted Leg (L), no edema noted Leg (R) Neurologic: sales representative meats II-XII grossly normal, alert, oriented x 3, responsive Assessment/Plan Problem List: (1) Anemia ICD Codes: D64.9 - Anemia, unspecified SNOMED: 631438808 (2) Gastrointestinal bleed ICD Codes: K92.2 - Gastrointestinal hemorrhage, unspecified SNOMED: 74496049 Status: stable Assessment/Plan: Po diet PPI rx monitor for bleeding endoscopy results nnoted iron replacement David Loredo MD Oct 19, 2020 09:53
[2020-10-19] MEDS: Pantoprazole Inj IVP SCH (10:15)
[2020-10-19] MEDS: Losartan 50mg tab ORAL SCH (10:15)
[2020-10-19] MEDS: Metoprolol Succinate XL 25mg tab ORAL SCH (10:16)
--- NOTE | 2020-10-19 13:02 | NUR ---
NURSE NOTES: Dr. Loredo notified that patient complains of IVF and would like it stopped. Orders to discontinue IVF.
--- NOTE | 2020-10-19 16:10 | NUR ---
NURSE NOTES: Received call from Dr. Lal, updated on patient current status, orders to give HS Venofer dose now and discharge patient after, medication reconciliation done by Dr. Lal, call transferred to patient to speak with Dr. Lal. Will follow as ordered.
--- NOTE | 2020-10-19 16:20 | Cardiology Progress Note ---
Subjective DATE OF SERVICE: Oct 19, 2020 No signs of bleeding, hemoglobin is 8.2 post transfusion. Patient fewer episodic abdominal pain EGD completed 10/18/20: findings notable only for gastritis; no active bleeding. Objective Last 24 Hour Vital Signs Date Time Temp Pulse Resp B/P (MAP) Pulse Ox O2 Delivery O2 Flow Rate FiO2 10/19/20 12:54 62 143/69 (93) 10/19/20 12:00 98.3 62 18 156/65 (95) 98 10/19/20 10:16 65 163/61 10/19/20 10:16 65 163/61 10/19/20 10:15 163/61 10/19/20 09:00 Room Air 10/19/20 08:00 97.8 65 20 163/61 (95) 97 10/19/20 06:31 98.2 10/19/20 04:00 98.2 63 18 153/68 (96) 97 10/19/20 00:00 98.0 66 20 157/64 (95) 96 10/18/20 21:00 Room Air 10/18/20 20:00 98.1 68 18 150/66 (94) 97 10/18/20 18:55 98.8 18 151/55 (87) 96 HEENT: normal ENT inspection LUNGS: lungs clear bilaterally CARDIAC: normal rate, regular rhythm, normal S1 and S2, systolic murmur - 1/6 syst murmur at apex ABDOMEN: normal bowel sounds, non tender, soft, no organomegaly EXTREMITIES: normal range of motion, non-tender Microbiology Date/Time Source Procedure Growth Status 10/16/20 18:50 Nasopharynx Coronavirus COVID-19 PCR ([facility]) - Final Complete Assessment/Plan Assessment/Plan GI Bleed due to gastritis and anti-coagulation rx Anemia - s/p 1 unit of PRBC Iron def Ischemic heart disease Hx CABG Hypertension/HHD CKD iron repl Resume baseline antiHTN regimen Avoid anti-plt rx Hold anticoagulation for now; outpatient follow-up on 10/22/20. Gordo Lal MD Oct 19, 2020 16:20
[2020-10-19] MEDS ORDERED: Iron Sucrose 100 MG in NS 55 ML IVPB SCH (16:30)
--- NOTE | 2020-10-19 17:30 | NUR ---
NURSE NOTES: Venofer infused as ordered, tolerated well.
--- NOTE | 2020-10-19 18:40 | NUR ---
NURSE NOTES: Discharge instructions reviewed with patient, signed, verbalized understanding. RH saline lock discontinued,no active bleeding.Awaiting on family member to bring patient clothes and take patient home. Will endorse to next shift.
--- NOTE | 2020-10-19 18:44 | NUR ---
NURSE HAND-OFF: Important Events on Shift:Discharge home tonight (awaiting on family to bring clothes and take patient home),needs ID bracelet removed, has her own RW to be sent home with patient, RH saline lock removed. Patient Status: stable Diet: cardiac Pending Orders: Discharge Pending Results/Labs:none Pending MD notification:none Latest Vital Signs: Temperature 98.3 , Pulse 66 , B/P 158 /77 , Respiratory Rate 20 , O2 SAT 100 , Room Air, O2 Flow Rate 6 . Vital Sign Comment: none Latest Huizar Fall Score: 60 Fall Risk: High Risk Safety Measures: Call light Within Reach, Bed Alarm Zone 1, Side Rails Side Rails x2, Bed position Low and Locked. Fall Precautions: Yellow Socks Door Sign Patient Fall Education Report given to Carlene JO.
--- NOTE | 2020-10-19 19:45 | NUR ---
NURSE NOTES: received report from jordon charles. patient on bed, awake and verbally responsive. a&o x4. denies any pain or discomfort. NO iv line. patient is for discharge to home today with a rolling walker, waiting for the private vehicle for pickling operator. per melvin, " all discharge papers are signed by the patient and was discussed by the am nurse" .all belongings on the bedside. reiterated to call and ask for assistance to prevent fall or injury. bed locked and in lowest position. call light and light button within easy reach. will continue plan of care.
--- NOTE | 2020-10-19 20:00 | NUR ---
NURSE NOTES: per patient, her ride will be on the way.
--- NOTE | 2020-10-19 20:30 | NUR ---
NURSE NOTES: patient states the family member is running an errand and thus will be late for the merchandise pickup/receiving associate. charge nurse made aware
--- NOTE | 2020-10-19 21:00 | NUR ---
NURSE NOTES: per patient, her daughter is on the way for machine pecan picker. charge nurse made aware
--- NOTE | 2020-10-19 21:17 | General Progress Note ---
Subjective Allergies: Coded Allergies: PENICILLINS (Verified Allergy, Mild, Rash, 10/16/20) Subjective Feels OK no abdominal complaints advised needs colonoscopy to complete GI w/u advised needs to see me as outpatient to arrange Objective Last 24 Hour Vital Signs Date Time Temp Pulse Resp B/P (MAP) Pulse Ox O2 Delivery O2 Flow Rate FiO2 10/19/20 20:00 97.7 83 20 144/79 (100) 97 10/19/20 16:00 98.3 66 20 158/77 (104) 100 10/19/20 12:54 62 143/69 (93) 10/19/20 12:00 98.3 62 18 156/65 (95) 98 10/19/20 10:16 65 163/61 10/19/20 10:16 65 163/61 10/19/20 10:15 163/61 10/19/20 09:00 Room Air 10/19/20 08:00 97.8 65 20 163/61 (95) 97 10/19/20 06:31 98.2 10/19/20 04:00 98.2 63 18 153/68 (96) 97 10/19/20 00:00 98.0 66 20 157/64 (95) 96 Intake and Output 10/18/20 10/19/20 19:00 07:00 Intake Total 950 ml 2726 ml Balance 950 ml 2726 ml Intake Oral 1720 ml IV Total 950 ml 1006 ml # Voids 5 Height (Feet): 5 Height (Inches): 5.00 Weight (Pounds): 220 Objective NCAT Supple CTA RRR abd soft ND NT no edema Neuro Nonfocal Assessment/Plan Status: stable Assessment/Plan: Assessment - Melena - due to gastritis - Anemia - abdominal pain - improved - N/V - resolved - CAD - HTN - Azotemia Recommendations - po diet - PPI - Follow CBC, BMP - d/c planning - If anticoagulation restarted, monitor CBC more closely at onset - outpatient colonoscopy Darrius Alford MD Oct 19, 2020 21:17
--- NOTE | 2020-10-19 21:40 | NUR ---
NURSE NOTES: patient is discharge via a private vehicle with her daughter.discharge papers took upon discharge. all belongings with RW was released. id band is out. charge nurse made aware.
--- NOTE | 2020-10-20 18:59 | Consultation ---
DATE OF CONSULTATION: 10/16/2020 CARDIOLOGY CONSULTATION CONSULTING PHYSICIAN: Gordo Lal MD. REFERRING PHYSICIAN: David Loredo MD. REASON FOR CONSULTATION: Anemia due to presumed GI bleeding in the setting of ischemic cardiomyopathy and paroxysmal atrial fibrillation. HISTORY OF PRESENT ILLNESS: This is a 65-year-old female, who has had abdominal pain for the past two to three weeks. She was taken off her nonsteroidal anti-inflammatory drugs approximately two weeks ago. Her symptoms improved slightly, but she continued to have pain and she was noted to have a progressive drop in her hemoglobin from the range of about 11 to 8.5. The patient is on chronic anticoagulation with apixaban for cardioembolic prophylaxis. This was discontinued two days ago due to the patient's new hemoglobin level and noted dark or black stools. The patient has not had any chest pain or shortness of breath. Her blood pressure parameters have been tenuous, but this is not new. Her legs have not been swollen and she has not noted any increase in abdominal girth. PAST MEDICAL HISTORY: Coronary artery disease, status post CABG, paroxysmal atrial fibrillation, hypertensive heart disease, chronic kidney disease, hypothyroidism, hyperlipidemia, degenerative disk disease, osteoarthritis. ALLERGIES: Penicillin. FAMILY HISTORY: Notable for hypertension. SOCIAL HISTORY: Negative for smoking, alcohol, or substance abuse. REVIEW OF SYSTEMS: Recent echocardiogram revealed normal ejection fraction, concentric hypertrophy, and mild degenerative valve disease. There is no history of diabetes. She is on thyroid replacement. Her LDL has been less than 100. She has had recently noted iron deficiency. There is no history of seizure or stroke. PHYSICAL EXAMINATION: GENERAL: Moderately obese, in no acute distress. VITAL SIGNS: Blood pressure 150/72, pulse 54, respirations 16. Afebrile. HEENT: Conjunctivae are pink. Sclerae are anicteric. Oropharynx is clear. NECK: Supple. Jugular venous pressure normal. LUNGS: Clear. BREASTS: Without discrete masses. CARDIAC: Regular rhythm and rate. Normal S1, S2 with a fourth heart sound. Median sternotomy scar noted. Point of maximum impulse laterally displaced . ABDOMEN: Obese, soft and nontender with no pulsatile masses. EXTREMITIES: Good pulses, trace edema. NEUROLOGIC: Nonfocal. LABORATORY DATA: Labs are noted. IMPRESSION: 1. Iron deficiency anemia. 2. Probable upper gastrointestinal bleeding. 3. Ischemic cardiomyopathy with stable angina. 4. Paroxysmal atrial fibrillation. 5. Apixaban associated coagulopathy. 6. Hypothyroidism, on replacement therapy. 7. Hypertensive heart and renal disease. PLAN: 1. Hold anti-platelet and anticoagulant. 2. No resumption of nonsteroidal anti-inflammatory drugs. 3. Titrate cardiovascular regimen based on clinical parameters. 4. SCDs for thromboembolism prevention. 5. GI consult for endoscopy. Stable from cardiovascular standpoint to proceed. Gordo Lal M.D. DR: ZACKARY JOB#: [id number] CC:
--- NOTE | 2020-10-21 01:44 | Procedure Note ---
DATE OF PROCEDURE: 10/18/2020 SURGEON: Lake Odom MD PROCEDURE: Upper endoscopy with biopsy. INDICATION: GI bleeding. ANESTHESIA: Per Dr. Rose. REASON FOR PROCEDURE: The procedure, risks, benefits, and possible consequences, including hemorrhage, aspiration, perforation and infection, and alternative treatments, were explained to the patient/legal guardian by Dr. Lake Odom and the patient/legal guardian understood and accepted these risks. DESCRIPTION OF PROCEDURE: After informed consent was obtained and patient was adequately sedated, Olympus upper endoscope was advanced from mouth into the second portion of the duodenum and retroflexion was performed in the stomach. Patient has evidence of diffuse gastritis. Random biopsies from antrum were obtained to rule out H. pylori infection. Patient also had evidence of a small hiatal hernia. No evidence of any esophagitis noted. No ulcerations. No upper duodenal bleeding. No evidence of active bleeding at this time. Patient tolerated the procedure very well without any complications. SUMMARY OF FINDINGS: 1. Small hiatal hernia. 2. Gastritis, status post biopsy, otherwise normal upper endoscopic examination. RECOMMENDATIONS: Follow hemoglobin and hematocrit. Transfuse as needed. Follow up biopsy results and treat accordingly. Consider colonoscopy on Wednesday if needed. Meanwhile resume diet. I want to thank, Dr. Alford, for this kind referral. Lake Odom M.D. DR: NIKI JOB#: [id number] CC: Darrius Alford M.D.; Fax#: [phone]
--- NOTE | 2020-10-21 02:29 | History and Physical Report ---
DATE OF ADMISSION: 10/16/2020 CHIEF COMPLAINT: Anemia and possible GI bleed. HISTORY OF PRESENT ILLNESS: The patient is a pleasant 65-year-old female. 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 The patient was recently started on aspirin therapy. She notes that she has had some dark black stools. She has had a significant drop in her hemoglobin. She denies any abdominal pain or hematemesis. Due to her melena and decreased hemoglobin, she is now admitted for further evaluation and care. PAST MEDICAL HISTORY: As above. PAST SURGICAL HISTORY: None. CURRENT MEDICATIONS: Reconciled and reviewed. ALLERGIES: Penicillin. FAMILY HISTORY: None. SOCIAL HISTORY: There is no known history of tobacco, ethanol, or drugs. REVIEW OF SYSTEMS: GENERAL: No fevers or chills. HEENT: No headaches or visual changes. CARDIOPULMONARY: No chest pain or shortness of breath. GASTROINTESTINAL: No nausea or vomiting. Positive melena GENITOURINARY: No urgency or frequency. MUSCULOSKELETAL: No joint pain or swelling. NEUROLOGIC: No history of seizures. PHYSICAL EXAMINATION: VITAL SIGNS: Temp 97, pulse 61, respirations 19, . GENERAL: The patient is well developed, no apparent distress. HEART: Regular rate and rhythm. LUNGS: Clear. ABDOMEN: Soft, nontender, nondistended. EXTREMITIES: Without clubbing, cyanosis, or edema. LABORATORY DATA: Hemoglobin was 8.6, platelet count of 163. Creatinine was 2.1. Coags are normal. ASSESSMENT: This is a pleasant elderly female with history of hypertension, paroxysmal AFib, admitted with complaints of anemia secondary to GI bleed. PLAN: 1. Discontinue antiplatelet therapy. 2. Monitor serial CBCs. Type and cross for 2 units. 3. GI and cardiology consultations. The patient may need an endoscopy. Plan of care was discussed with the patient's air crew officer. David Loredo M.D. DR: ISA JOB#: [id number] CC:
--- NOTE | 2020-10-24 12:40 | Discharge Summary ---
Discharge Summary Discharge Summary _ DATE OF ADMISSION: 10/16/2020 DATE OF DISCHARGE: 10/19/2020 DISCHARGED BY: Dr. Loredo REASON FOR ADMISSION: 65 years old female with past medical history of hypertensive heart disease, CABG, paroxysmal atrial fibrillation, GERD, presented from [facility] office due to anemia. Patient recently started on aspirin therapy. Patient noted to have dark black stools. Laboratory work-up revealed significant drop of hemoglobin. Patient denied hematemesis. Due to melena and decreased hemoglobin she was admitted for further evaluation and management. CONSULTANTS: [facility] Dr Lal GI specialist Dr. Alford [facility]RSE: Patient admitted and started on IV Protonix. GI and [facility] followed. Antiplatelet therapy was discontinued. Anemia work-up revealed evidence of iron deficiency anemia. Patient started on IV iron. Patient undergone on 10/18 upper endoscopy with biopsy,, which revealed gastritis status post biopsy, otherwise normal upper endoscopy. Small hiatal hernia. Biopsy results revealed mild chronic gastritis. No evidence of intestinal metaplasia, dysplasia or malignancy. No evidence of Helicobacter infection. Patient was transfused while in the hospital with 1 unit of packed red blood cells. Prior to discharge hemoglobin 8.2, hematocrit 25.3. Patient slowly started on diet and was able to tolerate diet. Colonoscopy was recommended as outpatient. No evidence of active bleeding. Abdominal pain resolved. GI bleeding was due to gastritis and anticoagulation therapy. Baseline antihypertensive regimen continued. Education Adviser recommended avoid antiplatelet therapy for now. Renal parameters electrolytes were closely monitored. Nephrotoxins were avoided. Creatinine remained at baseline. Patient clinically stabilized and was ready for discharge. Patient was advised on outpatient colonoscopy. FINAL DIAGNOSES: GI bleeding due to gastritis and anticoagulation therapy Anemia status post 1 unit PRBC Iron deficiency anemia Hypertension/hypertensive heart disease Chronic kidney disease Ischemic heart disease History of CABG anemia Hypertension Coronary artery disease Status post upper endoscopy Gastritis Small hiatal hernia DISCHARGE MEDICATIONS: See Medication Reconciliation list. DISCHARGE INSTRUCTIONS: Discharge home. Follow-up with primary care provider. Outpatient colonoscopy as advised. I have been assigned to dictate discharge summary for this account. I was not involved in the patient's management. Ro Aviles NP Oct 24, 2020 12:40
== END 2020-10-19 21:40 | disposition home or self-care (01) | DRG 378 ==
LOC: EDBD → 4E 15:47
PROC: 30233N1 Transfusion of Nonautologous Red Blood Cells into Peripheral Vein, Percutaneous Approach (ICD-10-PCS; principal; 2020-10-17)
PROC: 0DB78ZX Excision of Stomach, Pylorus, Via Natural or Artificial Opening Endoscopic, Diagnostic (ICD-10-PCS; 2020-10-18)
DX: K29.71 Gastritis, unspecified, with bleeding (principal); I20.0 Unstable angina; K44.9 Diaphragmatic hernia without obstruction or gangrene; D50.0 Iron deficiency anemia secondary to blood loss (chronic); T45.515A Adverse effect of anticoagulants, initial encounter; I13.10 Hypertensive heart and chronic kidney disease without heart failure, with stage 1 through stage 4 chronic kidney disease, or unspecified chronic kidney disease; N18.9 Chronic kidney disease, unspecified; Z88.0 Allergy status to penicillin; I48.0 Paroxysmal atrial fibrillation; Z79.01 Long term (current) use of anticoagulants; I25.5 Ischemic cardiomyopathy; E03.9 Hypothyroidism, unspecified; Z95.1 Presence of aortocoronary bypass graft
CPT/HCPCS: 36415; 80048; 80053; 82378; 83540; 83550; 85025; 85610; 86850; 86900; 86901; 86920; 94003; 94150